=== PATIENT | female | born 1975 | race Caucasian/White ===

== ENCOUNTER 2020-01-09 15:39 | Emergency (ER) | payer OTHER ==
--- NOTE | 2020-01-09 15:57 | ER Document Report ---
ED Medical Screen (RME) - General Chief Complaint: Abdominal Pain Stated Complaint: ABDOMINAL PAIN/NAUSEA/CHILLS Time Seen by Provider: 01/09/20 15:47 Mode of Arrival: Ambulatory Information source: Patient Notes: 44-year-old female with no prior history presents emergency department with complaints of lower abdominal and epigastric abdominal pain. Reports symptoms started on Saturday. She reports she is been extremely nauseated has not ate since Saturday. She reports she has been dry heaving but no vomiting or diarrhea. She reports the pain wraps all the way around her back and down to her rectum. She also complains of bladder pain when she voids. She did go see a provider at an urgent care who told her she had diverticulitis because he could feel the inflammation in her belly. He treated her with Flagyl and Bactrim. No CT was done. Pt denies PMH of diverticulitis. She reports he instructed her to come to the emergency department if she continues to have pain. I have greeted and performed a rapid initial assessment of this patient. A comprehensive ED assessment and evaluation of the patient, analysis of test results and completion of the medical decision making process will be conducted by additional ED providers. - Related Data Allergies/Adverse Reactions: latex Allergy (Verified 01/09/20 15:52) Physical Exam - Vital signs Vitals: Temp Pulse Resp BP Pulse Ox 98.2 F 94 20 138/81 H 100 01/09/20 15:46 01/09/20 15:46 01/09/20 15:46 01/09/20 15:46 01/09/20 15:46 Course - Vital Signs Vital signs: Temp Pulse Resp BP Pulse Ox 98.2 F 94 20 138/81 H 100 01/09/20 15:46 01/09/20 15:46 01/09/20 15:46 01/09/20 15:46 01/09/20 15:46
[2020-01-09 16:43] LABS: ABSOLUTE LYMPHOCYTES (AUTO) 3.1 10^3/uL (0.5-4.7); ABSOLUTE MONOCYTES (AUTO) 0.7 10^3/uL (0.1-1.4); ABSOLUTE NEUT (AUTO) 4.1 10^3/uL (1.7-8.2); BASOPHILS % (AUTO) 0.4 % (0-2); EOSINOPHILS % (AUTO) 0.6 % (0-6); HEMATOCRIT 38.8 % (36.0-47.0); HEMOGLOBIN 13.8 g/dL (12.0-15.5); LYMPHOCYTES % (AUTO) 39.4 % (13-45); MEAN CORPUSCULAR HGB CONC 35.6 g/dL (32.0-36.0); MEAN CORPUSCULAR VOLUME 98 fl (80-97); MONOCYTES % (AUTO) 8.7 % (3-13); PLATELET COUNT 232 10^3/uL (150-450); RED BLOOD COUNT 3.94 10^6/uL (3.72-5.28); SEGMENTED NEUTROPHILS % (AUTO) 50.9 % (42-78); TOTAL CELLS COUNTED % (AUTO) 100 %
[2020-01-09 16:47] LABS: APPEARANCE,URINE CLEAR; BILIRUBIN,URINE NEGATIVE (NEGATIVE); COLOR,URINE STRAW; GLUCOSE, URINE NEGATIVE (NEGATIVE); KETONES,URINE TRACE mg/dL (NEGATIVE); LEUKOCYTE ESTERASE,URINE NEGATIVE (NEGATIVE); NITRITE,URINE NEGATIVE (NEGATIVE); PROTEIN,URINE NEGATIVE (NEGATIVE); URINE SPECIFIC GRAVITY 1.003; UROBILINOGEN,URINE NEGATIVE mg/dL (<2.0)
[2020-01-09 16:58] LABS: ALBUMIN 4.6 g/dL (3.5-5.0); ALKALINE PHOSPHATASE 70 U/L (38-126); ANION GAP 12 (5-19); ASPARTATE AMINO TRANSFERASE 29 U/L (14-36); BILIRUBIN,DIRECT 0.3 mg/dL (0.0-0.4); BILIRUBIN,TOTAL 0.9 mg/dL (0.2-1.3); BLOOD UREA NITROGEN 11 mg/dL (7-20); CALCIUM 9.7 mg/dL (8.4-10.2); CARBON DIOXIDE 23 mmol/L (22-30); CHLORIDE 101 mmol/L (98-107); GLUCOSE 80 mg/dL (75-110); POTASSIUM 3.8 mmol/L (3.6-5.0); TOTAL PROTEIN 7.6 g/dL (6.3-8.2)
--- NOTE | 2020-01-09 17:00 | RADIOLOGY REPORT (SQ) ---
EXAM DESCRIPTION: CT ABD/PELVIS WITH IV ONLY COMPLETED DATE/TIME: 01/09/2020 4:40 pm REASON FOR STUDY: abd pain COMPARISON: None. TECHNIQUE: CT scan of the abdomen and pelvis performed using helical scanning technique with dynamic intravenous contrast injection. No oral contrast. Images reviewed with lung, soft tissue, and bone windows. Reconstructed coronal and sagittal MPR images reviewed. Delayed images for evaluation of the urinary system also acquired. All images stored on PACS. All CT scanners at this facility use dose modulation, iterative reconstruction, and/or weight based d osing when appropriate to reduce radiation dose to as low as reasonably achievable (ALARA). [facility]: Dose Right [facility]: CareDose [facility]: Dose Right [facility]: Teradose 4D [facility]: aroundtheway CONTRAST TYPE AND DOSE: contrast/concentration: Isovue 350.00 mg/ml; Total Contrast Delivered: 72.0 ml; Total Saline Delivered: 62.0 ml RENAL FUNCTION: None required. The patient is less than 50 years old. RADIATION DOSE: CT Rad equipment meets quality standard of care and radiation dose reduction techniq ues were employed. CTDIvol: 5.0 - 5.7 mGy. DLP: 608 mGy-cm.. LIMITATIONS: None. FINDINGS: LOWER CHEST: No significant findings. No nodules or infiltrates. LIVER: Normal size. No masses. No dilated ducts. SPLEEN: Normal size. No focal lesions. PANCREAS: No masses. No significant calcifications. No adjacent inflammation or peripancreatic fluid collections. Pancreatic duct not dilated. GALLBLADDER: No identified stones by CT criteria. No inflammatory changes to suggest cholecystitis. ADRENAL GLANDS: No significant masses or asymmetry. RIGHT KIDNEY AND URETER: No solid masses. No significant calcifications. No hydronephrosis or hyd roureter. LEFT KIDNEY AND URETER: No solid masses. No significant calcifications. No hydronephrosis or hydr oureter. AORTA AND VESSELS: No aneurysm. No dissection. Renal arteries, SMA, celiac without stenosis. RETROPERITONEUM: No retroperitoneal adenopathy, hemorrhage or masses. BOWEL AND PERITONEAL CAVITY: No masses or inflammatory changes. No free fluid or peritoneal masses. APPENDIX: Not identified. PELVIS: Urinary bladder is normal. There is a 35 mm simple left adnexal cyst. ABDOMINAL WALL: No masses. No hernias. BONES: No significant or acute findings. OTHER: No other significant finding. IMPRESSION: 35 mm left adnexal cyst is almost certainly benign. No additional imaging is required f or this. No other significant finding in the abdomen or pelvis. TECHNICAL DOCUMENTATION: JOB ID: [id number] Quality ID # [id number]: Final reports with documentation of one or more dose reduction techniques (e.g., Au tomated exposure control, adjustment of the mA and/or kV according to patient size, use of iterative reconstruction technique) 2010 [employer]- All Rights Reserved Reading location - IP/workstation name: [email or web address]
--- NOTE | 2020-01-09 17:27 | ER Document Report ---
ED General - General Chief Complaint: Abdominal Pain Stated Complaint: ABDOMINAL PAIN/NAUSEA/CHILLS Time Seen by Provider: 01/09/20 15:47 Mode of Arrival: Ambulatory Notes: Patient is a 44-year-old white female with no significant past medical history who presents to the emergency department with a chief complaint of lower abdominal discomfort that began 3 days ago. She states is associated with a bloating sensation in the lower abdomen. She states she has to hold her legs up when she urinates because she feels pain in the suprapubic area. She states the pain radiates around the bilateral flanks to her back. She was seen outpatient in urgent care and diagnosed with clinical diverticulitis placed on Bactrim and Flagyl. She states the medications are not helping. She denies any diarrhea, constipation, nausea or vomiting. Denies any known fevers but admits to some intermittent chills. Denies any abdominal surgeries, vaginal bleeding or discharge. TRAVEL OUTSIDE OF THE [place] IN LAST 30 DAYS: No - Related Data Allergies/Adverse Reactions: latex Allergy (Verified 01/09/20 15:52) Home Medications: migraines Past Medical History - General Information source: Patient - Social History Smoking Status: Current Every Day Smoker Chew tobacco use (# tins/day): No Frequency of alcohol use: None Drug Abuse: None Family History: None Patient has suicidal ideation: No Patient has homicidal ideation: No Review of Systems - Review of Systems Gastrointestinal: Abdominal pain -: Yes All other systems reviewed and negative Physical Exam - Vital signs Vitals: Temp Pulse Resp BP Pulse Ox 98.2 F 94 20 138/81 H 100 01/09/20 15:46 01/09/20 15:46 01/09/20 15:46 01/09/20 15:46 01/09/20 15:46 - General General appearance: Appears well, Alert In distress: None - Respiratory Respiratory status: No respiratory distress Chest status: Nontender Breath sounds: Normal Chest palpation: Normal - Cardiovascular Rhythm: Regular Heart sounds: Normal auscultation - Abdominal Inspection: Normal Distension: No distension Bowel sounds: Normal Tenderness: Tender - Right and left lower quadrant - Back Back: No: CVA tenderness - Neurological Neuro grossly intact: Yes Cognition: Normal Orientation: AAOx4 [place] Coma Scale Eye Opening: Spontaneous [place] Coma Scale Verbal: Oriented [place] Coma Scale Motor: Obeys Commands [place] Coma Scale Total: 15 Speech: Normal - Psychological Associated symptoms: Normal affect, Normal mood - Skin Skin Temperature: Warm Skin Moisture: Dry Skin Color: Normal Course - Re-evaluation Re-evalutation: 01/09/20 17:40 CAT scan showing a left-sided adnexal cyst that the radiologist remarks is likely benign is 3.5 cm. Discussed the findings with the patient and her significant other. She reports she has an appointment with her [facility] on and will discuss this with him for further outpatient monitoring and management. Counseled him regarding the importance of outpatient follow-up and advised they return here or any ER immediately with any new, persistent or worsening symptoms. They verbalized understood and agreed. - Vital Signs Vital signs: Temp Pulse Resp BP Pulse Ox 98.2 F 94 20 138/81 H 100 01/09/20 15:46 01/09/20 15:46 01/09/20 15:46 01/09/20 15:46 01/09/20 15:46 - Laboratory Result Diagrams: 01/09/20 16:16 01/09/20 16:16 Laboratory results interpreted by me: 01/09/20 01/09/20 01/09/20 16:16 16:16 16:16 MCV 98 H MCH 35.0 H Sodium 136.1 L Urine Ketones TRACE H Urine Blood SMALL H Discharge - Discharge Clinical Impression: Adnexal cyst Condition: Stable Disposition: HOME, SELF-CARE Instructions: Ovarian Cyst ([facility]) Additional Instructions: Please follow-up with your [facility] on Saturday as scheduled and discussed. Return here or any ER immediately with any new, persistent or worsening symptoms. Prescriptions: Ketorolac Tromethamine [Toradol 10 mg Tablet] 10 mg PO Q8HP PRN #20 tablet PRN Reason:
[2020-01-09 17:57] VITALS: BP 125/86
== END 2020-01-09 17:55 | disposition home or self-care (01) ==
LOC: ER 15:39
DX: N94.89 Other specified conditions associated with female genital organs and menstrual cycle (principal); K57.92 Diverticulitis of intestine, part unspecified, without perforation or abscess without bleeding; F17.200 Nicotine dependence, unspecified, uncomplicated; Z79.899 Other long term (current) drug therapy; Z91.040 Latex allergy status
CPT/HCPCS: 36415; 74177; 80053; 81001; 83690; 85025; 99284